=== PATIENT | male | born 1990 | race Caucasian/White ===

== ENCOUNTER 2021-03-25 10:26 | Emergency (ER) | payer MEDICARE, MEDICAID ==
[~2021-03-25] VITALS: Ht 152.4 cm; Wt 72.7 kg
[2021-03-25 10:41] VITALS: BP 126/76
[2021-03-25] MEDS ORDERED: DOXY-1 PO (10:53)
[2021-03-25] MEDS ORDERED: BUTE12CR TOP (10:53)
== END 2021-03-25 11:29 | disposition home or self-care (01) ==
LOC: ER 10:27
DX: L03.116 Cellulitis of left lower limb (principal); B35.3 Tinea pedis; Z79.2 Long term (current) use of antibiotics; Z79.899 Other long term (current) drug therapy
CPT/HCPCS: 10160; 99284

== ENCOUNTER 2021-06-01 15:01 | Emergency (ER) | payer MEDICARE, MEDICAID ==
[~2021-06-01] VITALS: Ht 175.3 cm; Wt 77.3 kg
[~2021-06-01 15:01] MED LIST: BUTE12CR TOP
[2021-06-01 15:18] VITALS: BP 144/88
== END 2021-06-01 15:37 ==
LOC: ER 15:01
DX: R45.1 Restlessness and agitation; Z79.899 Other long term (current) drug therapy
CPT/HCPCS: 99283

== ENCOUNTER 2022-02-06 23:29 | Emergency (ER) | payer MEDICARE, MEDICAID ==
[~2022-02-06] VITALS: Ht 175.3 cm; Wt 70.5 kg
[2022-02-06 23:35] VITALS: BP 138/78
== END 2022-02-07 09:04 | disposition left against medical advice (07) ==
LOC: ER 23:30
DX: R22.31 Localized swelling, mass and lump, right upper limb (principal); Z53.21 Procedure and treatment not carried out due to patient leaving prior to being seen by health care provider
CPT/HCPCS: 73140